=== PATIENT | female | born 1940 | race Caucasian/White ===

== ENCOUNTER 2024-06-16 11:17 | Inpatient (IN) | payer MEDICARE, SELFPAY ==
[2024-06-16] VITALS (12 sets, daily range): BP systolic 115–145; BP diastolic 51–100; BMI 25.9
--- NOTE | 2024-06-16 08:58 | W.PN.CARDCBS ---
Today's Communication / Plan
-
LHC today
echo today
Impression / Plan
-
This is the H&P summary.
Full H&P scanned into chart.
PCP: Paula Campo MD
CDY: Boyd Lofton, DO
HPI: This is a, 83 y/o white female, PMH sig for Ciaran's Thyroiditis, untreated HLD (refused statin), osteopenia, PACs (from holter 09/2022) Vitamin D Deficiency, BPPV, sensorineural hearing loss. She takes no prescription meds, only OTC vitamins
and supplements.
Presented to [facility] ER with new onset diffuse chest, neck and arm discomfort, initally on exertion but progressed to at rest. HS Troponin trended with peak 267, started in IV Heparin with aspirin 324mg load on 06/13, taking 81mg daily since then. She
has been chest pain free since admission and transferred today for [facility].
IMPRESSION/PLAN:
NSTEMI
[facility] today
aspirin 81mg given this AM
echo post cath
tolerating new start metoprolol tartrate 25mg BID
cardiac rehab consult
plan pending cath results
followup w/Dr. Lofton at d/c
HLD- lipid profile 06/14: TCh 211, Trig 88, LDL 142, HDL 51
new start atorvastatin 80mg/daily- margie well so far
Ciaran's Thyroiditis
no recent labwork, not on any meds- per PCP management
Progress Note - Inside Sales Account Executive
Subjective
Date of Service: June 16, 2024
[2024-06-16] MEDS: LOW STRENGTH ASPIRIN 81 MG PO (09:17)
--- NOTE | 2024-06-16 10:02 | ITS.CL.CATH ---
Pool Attendant - Catheterization
Cardiac Catheterization
Procedure Report:
CARDIAC CATHETERIZATION REPORT
Date of Procedure: 06/16/2024
Referring: Boyd Lofton D.O.
INDICATION: Non-ST elevation myocardial infarction.
PROCEDURE:
1. Left heart catheterization.
2. Coronary angiography.
ACCESS:
6 Turkish right radial artery.
CATHETERS:
1. 5 Turkish JR4.
2. 5 Turkish JL 3.5.
HEMODYNAMIC DATA
Weight (kg): 62.2
AO (s/d/x, mmHg): 108/54/69
LV (s/x mmHg): 108/10
LEFT VENTRICULOGRAPHY: Not performed.
CORONARY ANGIOGRAPHY
Dominance: Right.
Left Main: Short, bifurcating vessel. No obvious coronary artery disease.
LAD: Normal size vessel giving rise to 1 significant diagonal before wrapping around the apex of the heart and supplying the distal third of the inferior septum. There is a hazy, 80% lesion in the proximal vessel leading into a tubular, 60-70%
lesion in the proximal and mid vessel spanning the origin of the first diagonal.
Ramus: Congenitally absent.
Circumflex: Normal size, nondominant vessel giving rise to 1 significant marginal. There is a long, tubular, 70% lesion in the proximal margin of OM1.
RCA: Normal size, dominant vessel. There are tandem 80% lesions in the mid RCA. There is a 70% lesion in the distal vessel after the crux. There is an additional 60-70% lesion in the distal vessel before the origin of the RPDA.
INTERVENTION(S)
None.
Closure Device: Vascular band.
Radiation (mGy): 192.19
DAP (cm2.Gy): 16.7116
Fluoroscopy time (minutes): 1.7
Sedation time (minutes): 21
CONCLUSIONS
1. Right dominant circulation with multivessel coronary artery disease including a hazy, 80% lesion in the proximal LAD leading into a tubular, 60-70% proximal/mid LAD lesion spanning the origin of the first diagonal, a 70% lesion in the proximal
margin of OM1, tandem 80% lesions in the mid RCA followed by a 70% lesion in the distal RCA after the crux and a 60-70% lesion in the distal RCA before the origin of the RPDA.
2. Normal filling pressures (LVEDP = 10 mmHg at 62.2 kg).
RECOMMENDATIONS:
1. Expectant management after cardiac catheterization via right radial approach.
2. Limited weight bearing on the right for one week.
3. Consultation with CT surgery regarding optimal revascularization strategy.
4. Echocardiogram ordered and pending.
5. Aggressive secondary prevention with high-dose, high potency statin.
6. Guideline directed medical therapy as hemodynamically tolerated.
Copy to: Boyd Lofton D.O., Daphney Campo M.D.
Darrion Back DO, FACC, FACP
--- NOTE | 2024-06-16 10:57 | PTCARENOTE ---
Received patient from the electronic lab technician at 1012 after [facility] via right radial artery. Patient was a transfer from [facility] for a Nstemi. Patient is very CIRCLE but otherwise AAO x 3. Radial band in place right wrist with palpable radial pulse and
pulse ox of 96% on RA. Monitoring VS, patient denies any pain or discomfort. Nursing admission assessment completed, call obrien at the bedside, patient's daughter at the bedside waiting to speak with Dr. Back.
--- NOTE | 2024-06-16 12:25 | CONSULT.CT ---
Consultation
-
Date/Time Consultation Requested: 06/16/24
Date/Time Consultation Performed: 06/16/24
Requesting Provider: Dr Darrion Back
Performing Provider: madelyn Ingram for Dr. Toledo
Reason for Consultation: CABG evaluation
Patient History
Physicians
Family Physician: Dr. Paula Campo
Outpatient Interior Assemblies Developer Prover: Dr. Lofton
Inpatient Interior Assemblies Developer Prover: Dr. Darrion Back
History of Present Illness
83-year-old , zlorg-[id number] female, with a past medical history significant for hyperlipidemia, treated with a statin (lipitor) approximately 14 years ago and discontinued due to myalgias. Patient noticed chest and neck tightness
during the past year for which she would perform gentle stretching exercises before getting out of bed. She also recounted increasing fatigue walking from her apartment to the dining tran. She denied shortness of breath or chest 'pain.' The chest
tightness radiated to her neck and was unrelieved with stretching on 06/15/2024, prompting evaluation at her [facility]. She was then referred to [place] emergency room where she ruled in for non-STEMI with peak troponin of 267.
Patient was treated with statin, beta-john, and intravenous heparin. Patient was transferred to [facility] for left heart cath (performed by Dr. Back on 06/16/2024), which reported triple-vessel coronary disease (80% proximal LAD, 70%
proximal OM1, 80% mid and 70% distal RCA. A transthoracic echo is ordered and pending. Reports blood in stool since starting IV Heparin
Past Medical History
Past Medical History: Hypercholesterolemia
Past Surgical History
Past Surgical History: Other (B/L cataract extraction)
Dental History
N/A
Family History
Mother: at Age
Father: at Age
Social History
Alcohol: Occasional (rare)
Drug: None
Tobacco: Non-Smoker
Personal:
Living: Alone (lives in [facility] (independent living))
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
Allergies
Allergy/AdvReac Type Severity Reaction Status Date / Time
epinephrine Allergy Severe heart Verified 06/16/24 08:55
racing
procaine Allergy Unknown Unknown Verified 06/16/24 08:56
Home Medications
�Medication �Instructions �Recorded �Confirmed �Type
cholecalciferol (vitamin D3) 100 100 mcg PO DAILY 06/16/24 06/16/24 History
mcg (4,000 unit) capsule
magnesium 250 mg tablet 250 mg PO DAILY 06/16/24 06/16/24 History
multivitamin 1 tab PO DAILY 06/16/24 06/16/24 History
omega-3 417 mg-dha 120 mg-epa-276 1 cap PO DAILY 06/16/24 06/16/24 History
mg-fish oil 600 mg-turmeric capsule
Review of Systems
-
History Source: Patient
General: Reports Fatigue
HEENT: Reports No Symptoms
Respiratory: Reports No Symptoms
Cardiac: Reports Chest Pain ('chest tightness')
Abdomen/GI: Reports No Symptoms
: Reports No Symptoms
Musculoskeletal: Reports No Symptoms
Skin: Reports No Symptoms
Neurological: Reports No Symptoms
Vascular: Reports No Symptoms
Physical Exam
Vital Signs
Temp 97.6 F 06/16/24 11:29
Temp route: Oral 06/16/24 11:29
Pulse 60 06/16/24 09:15
Rhythm: Normal sinus rhythm 06/16/24 10:15
With- PAC's 06/16/24 10:15
Resp Rate 18 06/16/24 11:29
Blood pressure 134/58 06/16/24 09:03
Blood pressure extremity used: Right upper arm 06/16/24 11:29
Position: Lying 06/16/24 11:29
MAP (cuff-Alan Monitor) 76 06/16/24 08:46
SaO2 97 06/16/24 11:29
Oxygen Mode of Delivery Room air 06/16/24 11:29
Can the patient verbally communicate their pain? Yes 06/16/24 10:18
Actual Weight 62.2 kg 06/16/24 09:02
Body Mass Index (BMI) 25.9 06/16/24 09:02
Diagnostic Studies
TTE/carotid US ordered
Exam
General: Well Developed, Well Nourished and No Apparent Distress
HEENT: Normocephalic, Anicteric, Moist Mucous Membranes and Other (hard of hearing)
Neck: Trachea Midline
Respiratory: Clear
Cardiac: S1/S2 and Regular Rhythm
GI: Soft, Non Tender and Non Distended
Rectal: Deferred by Provider
Skin: Warm and Dry
Neuro: AO x 3 and Nonfocal/Grossly Intact
Extremities: Pulses (+2/4 DP pulses B/L)
Lymph: No Lymphadenopathy
Psych: Calm
Assessment / Plan
-
83-year-old female with triple-vessel coronary disease
Dr Toledo discussed advantage/disadvantage of surgical procedure, potential complications ans expected recovery process with patient and her daughter
- TTE/carotid US ordered
- Hemetest stools
- if deemed a surgical candidate, will need pre-op orders and consent
Data Reviewed
-
EKG: Report Reviewed by me and Discussed with Physician
Optics Manufacturing Technician: Report Reviewed by me and Discussed with Physician
Labs: Labs Reviewed by me and Discussed with Physician
[2024-06-16 13:24] LABS: Hematocrit 40.2 % (37.0-47.0); Hemoglobin 12.9 g/dL (12.0-16.0); Mean Corp Hgb Conc. 32.1 g/dL (33.0-37.0); Mean Corpuscular Hgb 27.9 pg (27.0-31.0); Mean Platelet Volume 10.9 fL (7.4-10.4); Platelet Count 230 10^3/uL (130-400); Red Blood Cell Count 4.62 10^6/uL (4.20-5.40); Red Cell Dist. Width 13.3 % (11.5-14.5); White Blood Cell Count 6.2 10^3/uL (4.8-10.8)
[2024-06-16 13:32] LABS: INR 1.02; PT 13.7 Sec (11.4-14.6)
--- NOTE | 2024-06-16 13:33 | CM ---
Reviewed chart. Met with Mrs. Guevara and her daughter to review discharge plans. She states prior to admission she resides alone in a apartment at [facility]. She states she has been there a year and a half. She states prior to admission
she was independent with ambulation and adls. She states she does not have any DME in the home. She states she has a very basic pharmacy benefit with [facility]. Daughter states she may need to go to the assist living([facility] for a short
stay or if she has surgery and needs skilled care, [facility] if indicated. Medical work-up in progress. Will need to see her current functional level to see if she will have any skilled care needs. The discharge plan is to return to her
apartment with [facility] versus going to their assisted living when medically stable.
[2024-06-16 13:34] LABS: APTT 95.2 Sec (23.4-35.0)
[2024-06-16] MEDS: HEPARIN 25000 UNITS/250 ML IV (16:35)
--- NOTE | 2024-06-16 16:43 | PTCARENOTE ---
Longer than expected to remove patient's right radial band due to some oozing when attempting to remove air. Band is now off and site is dry and intact. IV heparin resumed at 750 units/hr as ordered. For repeat PTT 2230 and will obtain type and
screen. Patient ambulating in the tran with her daughter, denies any complaints. Daughter is from out of town and plans to stay overnight with her mother.
[2024-06-16] MEDS: LIPITOR 80 MG PO (17:17)
--- NOTE | 2024-06-16 17:35 | PTCARENOTE ---
After ambulating in the tran with her daughter, patient stated she had a sensation under her both arms and neck area similar to what brought her into the hospital. She could not give it a number on the pain scale and said it was not a pain. Patient
was back in bed, 124/58-81. EKG done, states the feeling has gone. Instructed that she should not exert herself, IV heparin infusing at 750 units/hr. Notified CT surgery SHOPPER'S AIDE, prn NTG ordered for the patient.
[2024-06-16] MEDS: LOPRESSOR 25 MG PO (19:47)
[2024-06-16 23:03] LABS: APTT 59.8 Sec (23.4-35.0)
[2024-06-17] VITALS (7 sets, daily range): BP systolic 114–140; BP diastolic 45–60; BMI 25.4
[2024-06-17 05:34] LABS: Hematocrit 38.9 % (37.0-47.0); Hemoglobin 12.9 g/dL (12.0-16.0); Mean Corp Hgb Conc. 33.2 g/dL (33.0-37.0); Mean Corpuscular Hgb 28.3 pg (27.0-31.0); Mean Corpuscular Volume 85.3 fL (81.0-99.0); Mean Platelet Volume 11.1 fL (7.4-10.4); Platelet Count 234 10^3/uL (130-400); Red Blood Cell Count 4.56 10^6/uL (4.20-5.40); Red Cell Dist. Width 13.3 % (11.5-14.5); White Blood Cell Count 6.5 10^3/uL (4.8-10.8)
[2024-06-17 05:59] LABS: INR 1.02; PT 13.7 Sec (11.4-14.6)
[2024-06-17 06:01] LABS: APTT 112.9 Sec (23.4-35.0)
[2024-06-17 06:12] LABS: Blood Urea Nitrogen 14 mg/dl (7-17); Calcium 9.2 mg/dl (8.4-10.2); Carbon Dioxide 22 mmol/L (22-30); Chloride 109 mmol/L (98-107); Estimated Creatinine Clearance 52 ml/min; Glucose 101 mg/dl (70-99); HDL Cholesterol 67 mg/dl; LDL Cholesterol, Calculated 118 mg/dl; Potassium 4.3 mmol/L (3.5-5.1); Sodium 139 mmol/L (135-145); Total Cholesterol 206 mg/dl (50-199); Triglyceride 107 mg/dl (10-149); Very Low Density Lipoprotein 21 mg/dl (0-30); eGFR > 60.00
--- NOTE | 2024-06-17 06:23 | PTCARENOTE ---
Assumed care of pt at change of shift. SR with frequent PACs on tele with HR 60s. R radial cath site c/d/i with no complications noted. Denies CP and SOB. Heparin gtt currently infusing at 850units/hr with next PTT today at 1210. Ambulating
independently in room without difficulty. Plan of care discussed with pt and her daughter, education provided on medications and procedures. Educational handouts at bedside as a resource. Pt and daughter offer no questions or concerns at this
time. Call obrien within reach.
[2024-06-17 08:20] LABS: Glycohemoglobin (HgbA1c) 5.4 % (4.0-5.6)
--- NOTE | 2024-06-17 10:00 | PTCARENOTE ---
Received patient this morning resting in bed, IV heparin infusing at 850 units/hr. Daughter at the bedside. Patient denies any pain or discomfort. Has decided that she would prefer attempting stenting, doesn't feel she could handle surgery but she
would like another opinion from an interventionalist. Tt to Luis Almanzar NP and she will have Dr. Jolley see the patient.
[2024-06-17] MEDS: LOPRESSOR 25 MG PO ×2 (10:27→20:03)
[2024-06-17] MEDS: LOW STRENGTH ASPIRIN 81 MG PO (10:27)
[2024-06-17] MEDS: FLUSH (NSS) 1 FLUSH IV (10:28)
--- NOTE | 2024-06-17 10:49 | W.PN.UPDATE ---
Update Note
Progress Note Update
Meet with patient this AM with Dr. Toledo. Patient and her daughter states they had a long discussion with Dr. Jolley and they would like to pursue stent options on .
--- NOTE | 2024-06-17 10:54 | CM ---
Reviewed chart. Met with Mrs. Guevara and her daughter to review discharge plans. She states she is feeling well. She states she is planning on going for stent later in the week. Prior to admission she resides alone in an apartment at [facility]. Prior to admission she was independent with ambulation and adls. She does not have any DME in the home. She states she has a basic prescription plan. Medical work-up in progress. The discharge plan is to return
home when medically stable.
--- NOTE | 2024-06-17 13:04 | W.PN.CD ---
Today's Communication / Plan
-
PCI of LAD/LCx+/-RCA on 06/19
NPO@MN 06/18
start valsartan today
Impression / Plan
-
PCP: Paula Campo MD
CDY: Boyd Lofton, DO
HPI: This is a, 83 y/o white female, PMH sig for Ciaran's Thyroiditis, untreated HLD (refused statin), osteopenia, PACs (from holter 09/2022) Vitamin D Deficiency, BPPV, sensorineural hearing loss. She takes no prescription meds, only OTC vitamins
and supplements.
Presented to [facility] ER with new onset diffuse chest, neck and arm discomfort, initally on exertion but progressed to at rest. HS Troponin trended with peak 267, started in IV Heparin with aspirin 324mg load on 06/13, taking 81mg daily since then. She
has been chest pain free since admission and transferred 06/17/24 for cor angio which demonstrated triple vessel disease.
She was seen separately by CT surgery and myself to discuss options. I had extensive discussions with the patient and also reviewed the case with Dr. Back and Dr. Young Toledo (CT surgery). I have reviewed her angiogram, which demonstrates
obstructive coronary artery disease in the proximal LAD, the large obtuse marginal branch, and the mid to distal RCA. All of these lesions are amenable to percutaneous revascularization. I have reviewed the patient's echocardiogram which
demonstrates normal biventricular function and no major valvular abnormalities. The patient is not interested in open heart surgery and given her advanced age and the opportunity for complete revascularization with stenting, I think this is a
reasonable approach. I will plan to revascularize the LAD and circumflex, and the RCA if contrast allows. If not I will stage the RCA for sometime in the next month. I discussed with her the risks and benefits of multivessel PCI including heart
attack, stroke, need for emergent surgery, and . I believe her overall risk of a serious complication such as these is approximately 1%. I explained to her that we will arrange for CT surgical backup during her procedure in the very unlikely
event that she should require emergent coronary artery bypass grafting. She is interested in proceeding and we have scheduled her procedure for 06/19. Her daughter was present for the discussion and all questions of hers and the patient's were
answered.
Impression:
- NSTEMI
- multivessel coronary artery disease
- hypertension
- hyperlipidemia, LDL 142
Plan:
- cont. DAPT with ASA/Plavix
- cont. atorva 80
- cont. metop 25 BID
- start valsartan 40 BID
- PCI scheduled for 06/19, NPO@MN on 06/18
- followup w/Dr. Lofton at d/c
Physical Exam
Vital Signs/Labs
Vital Signs
Temp Pulse Resp BP Pulse Ox
36.6 C 63 18 140/59 97
06/17/24 08:47 06/17/24 12:00 06/17/24 08:47 06/17/24 10:28 06/17/24 08:47
06/16/24 06/17/24 06/18/24
06:59 06:59 06:59
Actual Weight 62.2 kg 61 kg
06/17/24 05:17
06/17/24 05:17
PT 13.7 Sec (11.4-14.6) 06/17/24 05:17
INR 1.02 06/17/24 05:17
APTT Cancelled 06/17/24 06:00
Triglycerides 107 mg/dl (10-149) 06/17/24 05:17
LDL Cholesterol, Calc 118 mg/dl 06/17/24 05:17
VLDL Cholesterol, Calc 21 mg/dl (0-30) 06/17/24 05:17
HDL Cholesterol 67 mg/dl 06/17/24 05:17
Physical Exam
Constitutional: No acute distress
Cardiovascular: Rhythm & rate is regular
Respiratory: Respiratory effort normal
Neuro/Psych: AO x 3
Data Reviewed
-
Date of Service: June 17, 2024
EKG: Tracing Personally Visualized and interpreted
Echo: Tracing Personally Visualized and interpreted
X-Ray/CT/US/MRI/NUC/PET: Image Personally Visualized and interpreted
Medical Tests (PFT, Pathology etc): Image Personally Visualized and interpreted
Labs: Labs Reviewed by me
[2024-06-17 13:17] LABS: APTT 112.3 Sec (23.4-35.0)
[2024-06-17] MEDS: LIPITOR 80 MG PO (17:43)
[2024-06-17 18:52] LABS: Urine Albumin Negative (Neg - Trace); Urine Bilirubin Negative (Negative); Urine Character Clear (Clear); Urine Color Yellow; Urine Glucose Negative (Negative); Urine Ketone Negative (Negative); Urine Leukocyte Negative (Negative); Urine Nitrite Negative (Negative); Urine Occult Blood Negative (Negative); Urine Specific Gravity 1.015 (<1.030); Urine Urobilinogen Negative (Neg - 1+)
[2024-06-17 19:33] LABS: APTT 91.5 Sec (23.4-35.0)
[2024-06-17] MEDS: HEPARIN 25000 UNITS/250 ML IV (19:58)
[2024-06-18] VITALS (8 sets, daily range): BP systolic 103–130; BP diastolic 44–73
[2024-06-18 05:24] LABS: Hematocrit 37.7 % (37.0-47.0); Hemoglobin 12.5 g/dL (12.0-16.0); Mean Corp Hgb Conc. 33.2 g/dL (33.0-37.0); Mean Corpuscular Hgb 28.2 pg (27.0-31.0); Mean Corpuscular Volume 84.9 fL (81.0-99.0); Mean Platelet Volume 11.5 fL (7.4-10.4); Platelet Count 214 10^3/uL (130-400); Red Blood Cell Count 4.44 10^6/uL (4.20-5.40); Red Cell Dist. Width 13.2 % (11.5-14.5)
[2024-06-18 05:36] LABS: APTT 86.9 Sec (23.4-35.0)
[2024-06-18 05:44] LABS: Blood Urea Nitrogen 15 mg/dl (7-17); Calcium 9.1 mg/dl (8.4-10.2); Carbon Dioxide 23 mmol/L (22-30); Chloride 107 mmol/L (98-107); Estimated Creatinine Clearance 41 ml/min; Glucose 89 mg/dl (70-99); Potassium 4.3 mmol/L (3.5-5.1); Sodium 139 mmol/L (135-145); eGFR > 60.00
[2024-06-18] MEDS: LOW STRENGTH ASPIRIN 81 MG PO (08:17)
[2024-06-18] MEDS: LOPRESSOR 25 MG PO ×2 (08:17→21:07)
[2024-06-18] MEDS: DIOVAN 40 MG PO (08:17)
--- NOTE | 2024-06-18 09:30 | W.PN.CD ---
Today's Communication / Plan
-
- Staged PCI in AM
- NPO after midnight
Impression / Plan
-
PCP: Paula Campo MD
CDY: Boyd Lofton, DO
HPI: This is a, 83 y/o white female, PMH sig for Ciaran's Thyroiditis, untreated HLD (refused statin), osteopenia, PACs (from holter 09/2022) Vitamin D Deficiency, BPPV, sensorineural hearing loss. She takes no prescription meds, only OTC vitamins
and supplements.
Presented to [facility] ER with new onset diffuse chest, neck and arm discomfort, initally on exertion but progressed to at rest. HS Troponin trended with peak 267, started in IV Heparin with aspirin 324mg load on 06/13, taking 81mg daily since then. She
has been chest pain free since admission and transferred 06/17/24 for cor angio which demonstrated triple vessel disease.
She was seen separately by CT surgery and myself to discuss options. I had extensive discussions with the patient and also reviewed the case with Dr. Back and Dr. Young Toledo (CT surgery). I have reviewed her angiogram, which demonstrates
obstructive coronary artery disease in the proximal LAD, the large obtuse marginal branch, and the mid to distal RCA. All of these lesions are amenable to percutaneous revascularization. I have reviewed the patient's echocardiogram which
demonstrates normal biventricular function and no major valvular abnormalities. The patient is not interested in open heart surgery and given her advanced age and the opportunity for complete revascularization with stenting, I think this is a
reasonable approach. I will plan to revascularize the LAD and circumflex, and the RCA if contrast allows. If not I will stage the RCA for sometime in the next month. I discussed with her the risks and benefits of multivessel PCI including heart
attack, stroke, need for emergent surgery, and . I believe her overall risk of a serious complication such as these is approximately 1%. I explained to her that we will arrange for CT surgical backup during her procedure in the very unlikely
event that she should require emergent coronary artery bypass grafting. She is interested in proceeding and we have scheduled her procedure for 06/19. Her daughter was present for the discussion and all questions of hers and the patient's were
answered.
Impression:
- NSTEMI
- PCI of LAD/LCx+/-RCA on 06/19
- multivessel coronary artery disease
- hypertension
- hyperlipidemia, LDL 142
Plan:
- cont. DAPT with ASA/Plavix
- cont. atorva 80
- cont. metop 25 BID
- start valsartan 40 BID
- PCI scheduled for 06/19, NPO@MN on 06/18
- followup w/Dr. Lofton at d/c
Physical Exam
Vital Signs/Labs
Vital Signs
Temp Pulse Resp BP Pulse Ox
98.3 F 66 18 122/50 96
06/18/24 07:16 06/18/24 06:00 06/18/24 07:16 06/18/24 04:18 06/18/24 07:16
06/17/24 06/18/24 06/19/24
06:59 06:59 06:59
Actual Weight 62.2 kg 61 kg
06/18/24 04:30
06/18/24 04:30
PT 13.7 Sec (11.4-14.6) 06/17/24 05:17
INR 1.02 06/17/24 05:17
APTT 86.9 Sec (23.4-35.0) H 06/18/24 04:30
Triglycerides 107 mg/dl (10-149) 06/17/24 05:17
LDL Cholesterol, Calc 118 mg/dl 06/17/24 05:17
VLDL Cholesterol, Calc 21 mg/dl (0-30) 06/17/24 05:17
HDL Cholesterol 67 mg/dl 06/17/24 05:17
Physical Exam
Constitutional: No acute distress and Comfortable
EENT: Anicteric and Moist mucous membranes
Cardiovascular: Rhythm & rate is regular, Pedal edema is absent and JVD pressure is normal
Respiratory: Respiratory effort normal, Lungs clear to auscul. and Wheeze Absent
GI: Soft, Distention absent and Non tender
Neuro/Psych: Alert, Oriented and AO x 3
Data Reviewed
-
Date of Service: June 18, 2024
Medical Decision Making: Reviewed Test Results, Test Interpretation and Review of Case with other Provider
EKG: Tracing Personally Visualized and interpreted
Echo: Report Reviewed by me
Medical Tests (PFT, Pathology etc): Discussed with Patient and Discussed with Family
Labs: Labs Reviewed by me
Old Records: Reviewed
--- NOTE | 2024-06-18 14:28 | PTCARENOTE ---
06/18/24 Received patient in bed with no complaints. IV Heparin infusing at 750 units/hr. Pt's Vital signs have been stable, afebrile. Daughter at bedside, all questions & concerns addressed. Reviewed medications and plan of care. Pt ambulated in
hallway w/daughter. Will monitor throughout shift.
--- NOTE | 2024-06-18 16:13 | PTCARENOTE ---
assessment remains stable. Pt c/o mild nausea and mild lightheadedness post walking to Bathroom. Has improved but still feels a little nauseous. Will monitor - BP/HR WNL - SR PACs.
[2024-06-18] MEDS: LIPITOR 80 MG PO (17:23)
[2024-06-19] VITALS (19 sets, daily range): BP systolic 93–147; BP diastolic 44–78
[2024-06-19] MEDS: HEPARIN 25000 UNITS/250 ML IV (03:55)
--- NOTE | 2024-06-19 03:59 | PTCARENOTE ---
Pt oob with family in visitors lounge. Ambulated in tran with no complaints. heparin gtt continued at 750 units/hr. npo for cath today. Sinus with pac's noted on telemetry.daughter at pt's bedside throughout the night.
[2024-06-19 05:21] LABS: APTT 90.6 Sec (23.4-35.0)
[2024-06-19] MEDS: LOW STRENGTH ASPIRIN 81 MG PO (08:38)
[2024-06-19] MEDS: LOPRESSOR 25 MG PO ×2 (08:38→20:00)
[2024-06-19] MEDS: DIOVAN 40 MG PO (08:38)
--- NOTE | 2024-06-19 09:20 | CM ---
Reviewed chart. Met with Mrs Guevara and her daughter to review discharge plans. She is going for a PCI today. Prior to admission she resides alone in an apartment at [facility]. Prior to admission she was independent
with ambulation and adls. She does not have any DME in the home She has a very basic prescription plan. Medical work-up in progress. The discharge plan is to return home when medically stable.
--- NOTE | 2024-06-19 11:00 | PTCARENOTE ---
PT aaox4 w/o complaints of pain. NPO awaiting Cath, heparin gtt therapeutic, see worklist for detailed assessment
[2024-06-19 15:16] LABS: ACT-LR - POC 240 Seconds (116-155)
--- NOTE | 2024-06-19 16:45 | PTCARENOTE ---
PT returned to room 1645 from prosthetic lab technician stents x2 Lad & obtuse marginal, R radial band on w/13ml of air. AAOx4 w/o complaints of pain, VSS; neuro checks WNL.
--- NOTE | 2024-06-19 18:17 | ITS.CL.PN ---
Outdoor [employer]ating [employer] - Procedure Note
Procedure
Procedure Note:
CARDIAC CATHETERIZATION REPORT
Date of Procedure: 06-19-2024
Referring: Dr. Kwadwo Back DO
Indication: NSTEMI
PROCEDURE(S)
1. left heart catheterization
2. PCI with stent to LAD
3. IVUS LAD
4. PCI with stent to LCx
5. IVUS LCx
ACCESS: 6F right radial artery (closure: radial band)
CATHETERS: EBU3.0 guide catheter (EBU3.5 too large)
HEMODYNAMIC DATA
LV 123/8 (EDP 16) mmHg
AO 118/56 (mean 78) mmHg
IVUS-guided PCI to proximal LAD
The left main was engaged with an EBU 3.0 guide catheter. Heparin was administered to achieve ACT greater than 300. Runthrough coronary wires were placed in the distal LAD and the D1. Initial lesion preparation was performed with a 2.5 x 15
compliant balloon with full expansion. IVUS was attempted but the catheter would not cross the distal lesion. Further lesion preparation was performed with a 3.0 x 12 NC balloon taken to 14 LELO with full expansion. After this IVUS was performed
demonstrating a 3.0 mm distal reference diameter, 3.25-3.5 mm proximal reference diameter, and non-concentric calcification. A 3.0 x 28 mm [place] drug-eluting stent was deployed at 14 lelo. There was mild ostial pinching of the jailed D1
but JUSTIN-3 flow distally. The D1 wire was pulled back and then rewired through stent struts. The stent was postdilated throughout with a 3.25 x 12 mm noncompliant balloon taken to high-pressure. There was noted to be a stenosis in the ostial LAD
that was analyzed in multiple projections. IVUS was performed demonstrating this to have an MLA of 6.5 mm. IVUS also demonstrated the stent to be well opposed and expanded other than the very proximal edge which was malapposed as it landed in a
area of aneurysm. Post dilation was thus performed with a 3.5 x 8 mm NC balloon at the proximal edge only. Final angiographic result was excellent with JUSTIN-3 flow in the LAD and diagonal. Our attention then turned to the circumflex.
IVUS-guided PCI to OM1
The wire was redirected to the circumflex. Initial lesion preparation was performed with a 2.0 x 12 mm compliant balloon taken to nominal pressure serially. A 2.25 x 30 mm NARCISO was selected and deployed at 14 lelo. IVUS was performed and
demonstrated excellent apposition and expansion with no edge dissection. Final angiographic result was excellent. This concluded the procedure. The wire and guide were removed and a TR band placed. The patient has been loaded with 600 mg of
Plavix at the beginning of the case.
RADIATION: dose 800 mGy; DAP 47.0 Gy*cm2; fluoroscopy time 24.5 min
CONCLUSIONS
1. Successful IVUS guided PCI of the proximal LAD with placement of a 3.0 x 28 mm [place]ience [place] NARCISO postdilated with a 3.25 mm NC balloon distally and 3.5 mm NC balloon proximally
2. Successful IVUS guided PCI of the OM1 with placement of a 2.25 x 30 mm [place] NARCISO
RECOMMENDATIONS
1. expectant management after cardiac catheterization via right radial approach
2. aggressive secondary prevention of coronary artery disease
3. staged revascularization of the RCA in 2 to 4 weeks with FloWire analysis to guide revascularization strategy
3. DAPT with aspirin and Plavix for 6-12 months
4. cardiac rehab
Copy to: Dr. Boyd Lofton DO (open claims representative); Paula Campo MD (PCP)
Signed: Salinas Jolley MD, PhD
[2024-06-19] MEDS: LIPITOR 80 MG PO (18:21)
--- NOTE | 2024-06-20 00:31 | PTCARENOTE ---
Assumed care of the patient @ 1899. Pt AAOx3 SR/SA on the monitor. R Radial band removed @ 2114. dressing c/d/i no bleeding or hematoma. Pt able to ambulate to bathroom without difficulty. Daughter at bedside. Call obrien within reach.
[2024-06-20 03:35] VITALS: BP 122/54
[2024-06-20 03:51] VITALS: BMI 25.8
[2024-06-20 04:18] LABS: APTT 28.1 Sec (23.4-35.0)
[2024-06-20 04:23] LABS: Hematocrit 35.1 % (37.0-47.0); Hemoglobin 11.7 g/dL (12.0-16.0); Mean Corp Hgb Conc. 33.3 g/dL (33.0-37.0); Mean Corpuscular Hgb 28.4 pg (27.0-31.0); Mean Corpuscular Volume 85.2 fL (81.0-99.0); Mean Platelet Volume 11.2 fL (7.4-10.4); Platelet Count 215 10^3/uL (130-400); Red Blood Cell Count 4.12 10^6/uL (4.20-5.40); Red Cell Dist. Width 13.4 % (11.5-14.5); White Blood Cell Count 8.5 10^3/uL (4.8-10.8)
[2024-06-20 04:29] LABS: Blood Urea Nitrogen 18 mg/dl (7-17); Calcium 8.9 mg/dl (8.4-10.2); Carbon Dioxide 21 mmol/L (22-30); Chloride 108 mmol/L (98-107); Estimated Creatinine Clearance 41 ml/min; Glucose 91 mg/dl (70-99); Potassium 4.2 mmol/L (3.5-5.1); Sodium 136 mmol/L (135-145); eGFR > 60.00
[2024-06-20 07:36] VITALS: BP 124/90
[2024-06-20 07:38] VITALS: BP 103/53
[2024-06-20 07:40] LABS: ACT-LR - POC > 397 Seconds (116-155)
[2024-06-20 07:40] LABS: ACT-LR - POC > 397 Seconds (116-155)
[2024-06-20 07:40] LABS: ACT-LR - POC > 397 Seconds (116-155)
[2024-06-20] MEDS: DIOVAN 40 MG PO (08:43)
[2024-06-20] MEDS: LOPRESSOR 25 MG PO (08:43)
[2024-06-20] MEDS: LOW STRENGTH ASPIRIN 81 MG PO (08:44)
[2024-06-20] MEDS: PLAVIX 75 MG PO (08:44)
--- NOTE | 2024-06-20 09:56 | W.PN.CD ---
Today's Communication / Plan
-
plan for discharge today with outpatient cardiology follow up
Impression / Plan
-
83F PMHx sig for Ciaran's Thyroiditis, untreated HLD (refused statin), osteopenia, PACs (from holter 09/2022), Vitamin D Deficiency, BPPV, sensorineural hearing loss. She takes no prescription meds, only OTC vitamins and supplements, presenting
with NSTEMI and found to have triple vessel coronary artery disease. She was evaluated by CT surgery and deemed to be a candidate, but given her advanced age and low syntax score disease, percutaneous revascularization was also felt to be a
reasonable option and after heart team discussion the patient opted for PCI. PCI to the LAD and LCx was performed 06/19/24, with plan for staged revascularization of the RCA in about 1 month.
This morning she is doing well without complaint.
Impression:
- NSTEMI
- PCI of LAD/LCx+/-RCA on 06/19
- multivessel coronary artery disease
- hypertension
- hyperlipidemia, LDL 142
Plan:
- cont. DAPT with ASA/Plavix for 1 year
- cont. atorva 80
- cont. metop 25 BID
- cont. valsartan 40
- plan for staged revascularization of RCA in ~1 month
- followup w/Dr. Lofton at d/c
Physical Exam
Vital Signs/Labs
Vital Signs
Temp Pulse Resp BP Pulse Ox
36.4 C 63 16 103/53 97
06/20/24 07:40 06/20/24 08:43 06/20/24 07:40 06/20/24 08:43 06/20/24 07:40
06/19/24 06/20/24 06/21/24
06:59 06:59 06:59
Actual Weight 61.8 kg
06/20/24 03:49
06/20/24 03:49
PT 13.7 Sec (11.4-14.6) 06/17/24 05:17
INR 1.02 06/17/24 05:17
APTT 28.1 Sec (23.4-35.0) 06/20/24 03:49
Triglycerides 107 mg/dl (10-149) 06/17/24 05:17
LDL Cholesterol, Calc 118 mg/dl 06/17/24 05:17
VLDL Cholesterol, Calc 21 mg/dl (0-30) 06/17/24 05:17
HDL Cholesterol 67 mg/dl 06/17/24 05:17
Physical Exam
Constitutional: No acute distress
Cardiovascular: Rhythm & rate is regular
Respiratory: Respiratory effort normal
Neuro/Psych: AO x 3
Data Reviewed
-
Date of Service: June 20, 2024
EKG: Tracing Personally Visualized and interpreted
Labs: Labs Reviewed by me
--- NOTE | 2024-06-20 10:25 | W.DS.TRANS ---
DC Summary - [facility]
-
Discharge Instructions:
Discharge Diagnosis/Procedures NSTEMI
Angioplasty with stent x1 to Left Anterior
Descending and x1 to left circumflex artery (
)
Residual mid Right Coronary artery CAD- for
staged procedure
Diet Low Cholesterol
Driving Restrictions No driving for 24 hours
Other Services Cardiac Rehab
Instructions:
Stand-Alone Forms: DC Instructions- Cath/EP Lab
Changes to Home Medications: Yes
Discharge Medications:
DC Medications w/original date entered in [place]
cholecalciferol (vitamin D3) 100 mcg (4,000 unit) capsule 100 mcg PO DAILY 06/16/24
magnesium 250 mg tablet 250 mg PO DAILY 06/16/24
multivitamin 1 tab PO DAILY 06/16/24
omega-3 417 mg-dha 120 mg-epa-276 mg-fish oil 600 mg-turmeric capsule 1 cap PO DAILY 06/16/24
aspirin 81 mg chewable tablet 81 mg PO DAILY #0 tabs 06/20/24
atorvastatin 80 mg tablet 80 mg PO QPM #90 tabs 06/20/24
clopidogrel 75 mg tablet 75 mg PO DAILY #90 tabs 06/20/24
metoprolol tartrate 25 mg tablet 25 mg PO BID #180 tabs 06/20/24
nitroglycerin 0.4 mg sublingual tablet 0.4 mg sublingual [id number] PRN chest pressure #25 tabs 06/20/24
valsartan 40 mg tablet 40 mg PO DAILY #90 tabs 06/20/24
Home Medication Changes
NEW: valsartan, nitrostat, metoprolol tartrate, clopidogrel, atorvastatin, aspirin
Pending Results: No
--- NOTE | 2024-06-20 10:48 | CM ---
Reviewed chart. Met with Mrs. Guevara and her daughter to review discharge plans. She states she is feeling well and maybe able to go home soon. Prior to admission she reside in an apartment at [facility]. Prior to
admission she was independent with ambulation and adls. She does not have any DME in the home. She has a very basic prescription plan. Medical work-up in progress. The discharge plan is to return home when medically stable.
[2024-06-20 11:13] VITALS: BP 98/46
== END 2024-06-20 12:08 | disposition home or self-care (01) | DRG 322 ==
LOC: IVU 11:17
PROVIDERS: Nurse Practitioner; Nurse Practitioner Adult Health; Student in an Organized Health Care Education/Training Program; ADMITTING PHYSICIAN Internal Medicine Cardiovascular Disease; CONSULT PHYSICIAN Thoracic Surgery (Cardiothoracic Vascular Surgery); FAMILY PHYSICIAN Internal Medicine
PROC: B2111ZZ Fluoroscopy of Multiple Coronary Arteries using Low Osmolar Contrast (ICD-10-PCS; 2024-06-16)
PROC: 4A023N7 Measurement of Cardiac Sampling and Pressure, Left Heart, Percutaneous Approach (ICD-10-PCS; 2024-06-16)
PROC: B241ZZ3 Ultrasonography of Multiple Coronary Arteries, Intravascular (ICD-10-PCS; 2024-06-19)
PROC: B2151ZZ Fluoroscopy of Left Heart using Low Osmolar Contrast (ICD-10-PCS; 2024-06-19)
PROC: 027135Z Dilation of Coronary Artery, Two Arteries with Two Drug-eluting Intraluminal Devices, Percutaneous Approach (ICD-10-PCS; 2024-06-19)
DX: I21.4 Non-ST elevation (NSTEMI) myocardial infarction (principal); E78.00 Pure hypercholesterolemia, unspecified; I25.10 Atherosclerotic heart disease of native coronary artery without angina pectoris; I10 Essential (primary) hypertension; E06.3 Autoimmune thyroiditis; I49.3 Ventricular premature depolarization; M85.80 Other specified disorders of bone density and structure, unspecified site; I49.1 Atrial premature depolarization; H90.3 Sensorineural hearing loss, bilateral; E55.9 Vitamin D deficiency, unspecified
CPT/HCPCS: 80048; 80061; 81003; 83036; 85027; 85347; 85610; 85730; 86850; 86900; 86901; 92978; 92979; 93005; 93306; 93458; 93880; C1725; C1753; C1874; C1887; C1894; C9600; Q9967

== ENCOUNTER 2024-08-01 09:43 | Day surgery (SDC) | payer MEDICARE, OTHER, SELFPAY ==
[2024-08-01] VITALS (11 sets, daily range): BP systolic 105–150; BP diastolic 42–78; BMI 25.8
[2024-08-01] MEDS: NSS 186 ML IV (10:44)
[2024-08-01 12:51] LABS: ACT-LR - POC 387 Seconds (116-155)
[2024-08-01 13:22] LABS: ACT-LR - POC 355 Seconds (116-155)
[2024-08-01 14:10] LABS: ACT-LR - POC 300 Seconds (116-155)
[2024-08-01 15:03] LABS: ACT-LR - POC > 397 Seconds (116-155)
--- NOTE | 2024-08-01 16:51 | W.PN.UPDATE ---
Update Note
Progress Note Update
83 yo WF s/p staged PCI RCA x 3 NARCISO (Same day) She denies cp, sob, margie diet, voiding, R rad site c/d/i no HT. She will continue DAPT ASA/Plavix. She has statin intolerances and elevated LFT's, I discussed PCSK9i with pt and daughter and they will
discuss with Dr. Lofton at office visit. She will continue isosorbide for now and if no further chest pains, possible d/c at office visit. Cardiac rehab c/s. Activity restrictions reviewed. She will f/u Dr. Lofton 08/15 @1140am. She is for d/c home
after 730p if rad site stable.
--- NOTE | 2024-08-01 17:59 | ITS.CL.PN ---
[employer]el[employer] - Procedure Note
Procedure
Procedure Note:
CARDIAC CATHETERIZATION REPORT
Date of Procedure: 08/01/2024
Referring: Dr. Darrion Back DO
Indication: NSTEMI, typical anginal
PROCEDURE(S)
1. left heart catheterization
2. coronary angiography
3. PCI with NARCISO to RCA
4. IVUS RCA
ACCESS: 6F right radial artery (closure: radial band)
CATHETERS
1. 6F JL3.5
2. 6F JR4 guide
MODERATE SEDATION: 90 minutes of moderate sedation was utilized. An independent family practice medical doctor was present to assist with and help manage the patient's level of consciousness and physiologic status.
ULTRASOUND GUIDED VASCULAR ACCESS (right radial artery): Ultrasound was utilized for vascular access. The vessel was visualized under ultrasound and noted to be patent. An image of the vessel was stored permanently in the patient's medical record.
Under direct ultrasound guidance, vascular access was obtained using a modified Seldinger technique and a 6 [place] sheath was placed.
HEMODYNAMIC DATA
LV 138/7 (EDP 17) mmHg
AO 140/56 (mean 89) mmHg
CORONARY ANGIOGRAPHY
Dominance: right
LM: Large vessel with mild disease.
LAD: Large vessel giving rise to a small caliber D1 and wrapping around the apex. There is mild ostial disease. There is a widely patent stent in the proximal to mid LAD jailing the D1. There is mild ostial pinching of the D1 with JUSTIN-3 flow.
There is otherwise mild nonobstructive disease.
LCx: Large vessel giving rise to a moderate caliber OM1, large OM2, and small OM3. There is a widely patent stent in the OM2 and otherwise mild nonobstructive disease.
RCA: Large vessel giving rise to a moderate caliber marginal branch, moderate caliber RPDA, and moderate caliber RPL branch. There is diffuse moderate to severe disease throughout the proximal to distal RCA.
IVUS guided PCI to RCA
Heparin was used for anticoagulation to achieve ACT greater than 300. The RCA was engaged with a 6 [place] JR4 guide catheter. A support wire was placed in the marginal branch and a second wire placed in the distal RPL. With wiring there was
occlusion of distal flow past the mid RCA and the patient had anginal symptoms but remained hemodynamically stable. Initial lesion preparation was performed with serial dilations of a 2.0 x 12 mm semicompliant balloon with amish of distal
flow. Further lesion preparation was then performed with a 2.25 by a 12 mm NC balloon with full expansion. IVUS was performed and demonstrated a 2.5 mm distal reference vessel diameter and 3.0 mm proximal reference diameter with nonconcentric
calcification. Stenting was performed in a distal to proximal fashion with overlapping 2.5x34 mm, 2.75x38 mm, and 2.75x34 mm [place] drug-eluting stents. Post dilation was performed with a 2.5 x 20 mm noncompliant balloon to high pressure
(18 ruth) from the distal to mid vessel and a 3.0 x 20 mm noncompliant balloon to high pressure (18 ruth) from the mid vessel to ostium including high-pressure ostial flaring. Final angiographic result was outstanding. The wire and guide were
removed and a TR band placed. The patient was given an additional 300 mg Plavix and taken to the recovery unit in stable condition.
RADIATION: dose 917 mGy; DAP 66.2 Gy*cm2; fluoroscopy time 38.8 min
CONCLUSIONS
1. Coronary artery disease as described with widely patent stents in the LCx and LAD and severe disease throughout the proximal to distal RCA
2. Mildly elevated LV filling pressure and no aortic stenosis on hemodynamic pullback
3. Successful IVUS-guided PCI of the ostial to distal RCA with overlapping 2.5x34 mm, 2.75x38 mm, and 2.75x34 mm [place] drug-eluting stents postdilated distally with a 2.5 mm NC balloon and proximally with a 3.0 mm NC balloon to high
pressure. Excellent result without complications.
RECOMMENDATIONS
1. expectant management after cardiac catheterization via right radial approach
2. continue DAPT with aspirin and Plavix for a total of 1 year.
3. aggressive secondary prevention of coronary artery disease
Copy to: Dr. Boyd Lofton DO (metal bending machine operator); Dr. Paula Campo MD (PCP)
Signed: Salinas Jolley MD, PhD
== END 2024-08-01 19:30 | disposition home or self-care (01) ==
LOC: CATH 09:43
PROVIDERS: ATTENDING PHYSICIAN Student in an Organized Health Care Education/Training Program; FAMILY PHYSICIAN Internal Medicine; REFERRING PHYSICIAN Internal Medicine
DX: I25.119 Atherosclerotic heart disease of native coronary artery with unspecified angina pectoris (principal); I25.2 Old myocardial infarction; Z95.5 Presence of coronary angioplasty implant and graft; E78.5 Hyperlipidemia, unspecified; I10 Essential (primary) hypertension; E06.3 Autoimmune thyroiditis; R42 Dizziness and giddiness; M85.80 Other specified disorders of bone density and structure, unspecified site
CPT/HCPCS: 92978; 99152; 99153; 76937; 85347; 93005; 93458; C1725; C1753; C1874; C1894; C9600; Q9967

== ENCOUNTER 2024-09-22 15:24 | Outpatient (RCR) | payer MEDICARE, OTHER, SELFPAY ==
[2024-09-11 09:10] LABS: HDL Cholesterol 57 mg/dl; LDL Cholesterol, Calculated 61 mg/dl; Total Cholesterol 142 mg/dl (50-199); Triglyceride 123 mg/dl (10-149); Very Low Density Lipoprotein 24 mg/dl (0-30)
== END 2024-09-22 23:59 | disposition home or self-care (01) ==
LOC: CRHB 15:24
PROVIDERS: ATTENDING PHYSICIAN Internal Medicine Cardiovascular Disease; FAMILY PHYSICIAN Internal Medicine
DX: I25.10 Atherosclerotic heart disease of native coronary artery without angina pectoris (principal); Z95.5 Presence of coronary angioplasty implant and graft
CPT/HCPCS: 36415; 80061; G0422; G0423

== ENCOUNTER 2024-10-22 15:11 | Outpatient (RCR) | payer MEDICARE, OTHER, SELFPAY | END 2024-10-22 23:59 | disposition home or self-care (01) | LOC: CRHB 15:11 | PROVIDERS: ATTENDING PHYSICIAN Internal Medicine Cardiovascular Disease; FAMILY PHYSICIAN Internal Medicine | DX: I25.10 Atherosclerotic heart disease of native coronary artery without angina pectoris (principal); Z95.5 Presence of coronary angioplasty implant and graft | CPT/HCPCS: G0422; G0423 ==

== ENCOUNTER 2024-11-21 14:49 | Outpatient (RCR) | payer MEDICARE, OTHER, SELFPAY | END 2024-11-21 23:59 | disposition home or self-care (01) | LOC: CRHB 14:49 | PROVIDERS: ATTENDING PHYSICIAN Internal Medicine Cardiovascular Disease; FAMILY PHYSICIAN Internal Medicine | DX: I25.10 Atherosclerotic heart disease of native coronary artery without angina pectoris (principal); Z95.5 Presence of coronary angioplasty implant and graft | CPT/HCPCS: G0422; G0423 ==

== ENCOUNTER 2024-12-03 15:55 | Outpatient (RCR) | payer MEDICARE, OTHER, SELFPAY | END 2024-12-03 16:00 | disposition home or self-care (01) | LOC: CRHB 15:55 | PROVIDERS: ATTENDING PHYSICIAN Internal Medicine Cardiovascular Disease; FAMILY PHYSICIAN Internal Medicine | DX: I25.10 Atherosclerotic heart disease of native coronary artery without angina pectoris (principal); Z95.5 Presence of coronary angioplasty implant and graft | CPT/HCPCS: G0422; G0423 ==